=== PATIENT | female | born 1970 | race Caucasian/White ===

== ENCOUNTER 2022-08-18 20:17 | Observation (INO) | payer OTHER ==
[~2022-08-18] VITALS: Ht 167.6 cm; Wt 108.9 kg
--- NOTE | ~2022-08-18 | OR ---
[facility] [address] [place], [place] [address] Draft DATE OF OPERATION: 08/18/2022 SURGEON: Medhat Sun MD TIME: 11:30 p.m. PROBLEM: Food impaction (crab and crab shell proximal esophagus). POSTOPERATIVE DIAGNOSIS: Food impaction (crab and crab shell proximal esophagus). PROCEDURE: Upper endoscopy with disimpaction of food, obstruction of esophagus (crab shell and meat). ANESTHESIA: General endotracheal, Bao Siemens, REIN[employer]CING [employer] MESH INDICATIONS: This is a 52-year-old white woman, who approximately 8:00 p.m. this evening was eating her meal which she prepared with fresh crab that she cracked herself and had the sudden onset of pain in the proximal esophagus. She did not have hypersalivation, but she could tell that the impaction was persistent. She presents to the emergency room and was evaluated by Dr. Lopez. This included a CT scan of the chest and neck, which confirmed apparent foreign body of the esophagus at approximately the C6 level. She does not currently have hypersalivation, but persistent pain and sensation of persistent foreign body. She is admitted at this time to undergo upper endoscopy and removal of foreign body and other indicated procedures. She understands the risk of bleeding, infection, perforation, and so on and wished to proceed. FINDINGS: The foreign body was not visible on laryngoscopy and is performed by the education nurse. There was indeed impacted foreign body in the upper esophagus consistent with crab shell and crab meat. It was extracted with a three-prong grasper completely. Additional endoscopic evaluation of the esophagus and stomach showed some retained food in the stomach, but no other finding. There was no associated stricture or neoplasm with the obstructive site. PATIENT NAME: MICHI POLK OPERATIVE REPORT DATE OF : 66 REPORT #: [id number] PHYSICIAN: MEDHAT SUN MD PCP: NO PRIMARY CARE PHYSICIAN REPORT IS CONFIDENTIAL AND NOT TO BE RELEASED WITHOUT AUTHORIZATION [facility] [address], [place] [address] Draft DESCRIPTION OF PROCEDURE: The patient was brought to the endoscopy suite and given a general endotracheal anesthetic. In the supine position, Olympus video upper endoscope was passed in the hypopharynx. Good positioning of the endotracheal tube in relation to the vocal cords was noted. There was no sign of foreign body in the hypopharynx. An Olympus video upper endoscope was passed in the esophagus. Soon thereafter, there was noted to be an obstructing foreign body, most consistent with presumed crab meat and shell. An attempt at removal with a double-pronged toothed grasper was unsuccessful as the shell was too hard. On that basis, three prong grasper was obtained allowing for grasping of the foreign body and extraction. The scope was reintroduced after offloading the foreign body and the esophagus throughout its length appeared normal and the stomach normal as well. There was some retained food in the stomach. The scope was withdrawn and careful examination of the impacted site showed no sign of ulceration, neoplasm, Euceda's epithelium, or other problem. Biopsies were not obtained. The scope was removed and the patient was taken to the recovery room in good condition. CONCLUDING DIAGNOSIS: Complete clearance of impacted foreign body consisting of crab shell and crab. PLAN: She will be okay to discharge tonight once fully recovered from her anesthesia. No specific therapy for additional treatment is needed at this time. She will return to the ongoing care of her usual physician, . [place]. MD SIVAKUMAR Allen/MAYAL /[id number] Copies: ~ PATIENT NAME: MICHI POLK OPERATIVE REPORT DATE OF : 66 REPORT #: [id number] PHYSICIAN: MEDHAT SUN MD PCP: NO PRIMARY CARE PHYSICIAN REPORT IS CONFIDENTIAL AND NOT TO BE RELEASED WITHOUT AUTHORIZATION
--- NOTE | ~2022-08-18 | CONS ---
[facility] [address], [place] [address] Draft DATE OF CONSULTATION: 08/18/2022 TIME: 10:30 p.m. REQUESTING PHYSICIAN: Dr. Lopez. PROBLEM: Probable foreign body obstruction proximal esophagus. HISTORY: This 52-year-old obese white woman lives in [place], [place]. She had made a meal tonight using fresh cracked crab. At the midportion of her meals, she noted obstruction of her esophagus as manifested by pain and is quite certain that she has swallowed crab which remains stuck in her throat. She has not had hypersalivation, only pain and discomfort. Evaluation by Dr. Lopez includes a CT scan of the neck, which may show at C6, a possibly radiopaque foreign body suggestive of crab shell. She is admitted at this time to undergo upper endoscopy and retrieval of foreign body. PAST MEDICAL HISTORY: Notable for heartburn, but not significant. She does take medication for that. She denies any heart disease or other major medical problems. She has never had a food impaction or foreign body in the past. She has no trouble breathing. SOCIAL HISTORY: As noted, she lives in [place], [place]. She does work in [place]. Her primary physician is in [place]. PHYSICAL EXAMINATION: GENERAL: An obese white woman, who is somewhat tentative in verbalizing, though does verbalize reasonably well and without evidence of wheezing or hoarseness particularly. She points to her mid to lower neck as area of presumed obstruction. She is not having hypersalivation. NECK: Palpation of the neck shows no sign of crepitus. CHEST: Shows normal respiratory excursion. Pulse is regular. ABDOMEN: Obese, but soft. There is no tenderness. I reviewed the CT scan. It does show some possibility of radiopaque foreign body in the esophagus on lateral view. PATIENT NAME: MICHI POLK CONSULTATION DATE OF : 66 REPORT #: [id number] PHYSICIAN: MEDHAT SUN MD PCP: NO PRIMARY CARE PHYSICIAN REPORT IS CONFIDENTIAL AND NOT TO BE RELEASED WITHOUT AUTHORIZATION [facility] [address], [place] [address] Draft ASSESSMENT: The patient may have a proximal cervical esophageal foreign body obstruction with crab shell. She does not have hypersalivation, therefore complete obstruction is unlikely. It is just as likely that she may have acute traumatic injury to the mucosa of the esophagus with perception of her foreign body as actual foreign body. In any case examination, endoscopically would be appropriate. The risks of bleeding, infection, and perforation were reviewed with her in detail. She understands. We would anticipate an endotracheal tube for protection of the airway. She ate at approximately 6:30, it is now 10:30 and although likely the stomach has been cleared of the meal that she did ingest safety for her airway, particularly upon removal of foreign body would be best served by endotracheal intubation. She understands this. MD SIVAKUMAR Allen/DAVID /[id number] cc: Dr. John Kirby DO Copies: SCOTT GRANT DO ~ PATIENT NAME: POLKMICHI CONSULTATION DATE OF : 66 REPORT #: [id number] PHYSICIAN: MEDHAT SUN MD PCP: NO PRIMARY CARE PHYSICIAN REPORT IS CONFIDENTIAL AND NOT TO BE RELEASED WITHOUT AUTHORIZATION
[2022-08-18] MEDS ORDERED: OMEPRAZOLE20 MG PO (20:51)
[2022-08-18] MEDS ORDERED: HYDROCHLOROTH12.5 M1 PO (20:51)
[2022-08-18] MEDS ORDERED: LOSARTAN-HCTZ1 EACH PO (20:51)
[2022-08-18] MEDS ORDERED: AMBIEN5 MG PO (20:52)
--- OUTSIDE RECORDS SUMMARY | 2022-08-18 21:44 | XMS ---
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 E.D. VISIT COUNT (12 MO.) 1 [facility] 1 ISREAL Araujo TOTAL 2 NOTE: Visits indicate total known visits. ED/UCC VISIT TRACKING (12 MO.) 08/18/2022 20:20 ISREAL Christensen [place] TYPE: Emergency COMPLAINT: - SOMETHING STUCK IN THROAT 10/10/2021 11:21 [facility] JEANNINE OR TYPE: Emergency DIAGNOSES: - Paresthesia of skin - Anesthesia of skin - Chest pain, unspecified INPATIENT VISIT TRACKING (12 MO.) No inpatient visits to display in this time frame [email or web address]
--- NOTE | 2022-08-18 23:24 | NUR ---
08/18/222323 Darlyn Davis 2321: PT ARRIVES TO PACU FROM ENOSCOPY SUIT AWAKE WITH NATURAL AIRWAY. PT ABLE TO RESPOND APPROPRIATELY. DENIES PAIN OR NAUSEA.
== END 2022-08-18 23:30 | disposition home or self-care (01) ==
LOC: ED 20:17 → MS 20:21
PROVIDERS: ADMIT Surgery; ATTEND Surgery
PROC: 0DP Gastrointestinal System, Removal (ICD-10-PCS; principal; 2022-08-18 22:50)
DX: T18.128A Food in esophagus causing other injury, initial encounter (principal); T17.228A Food in pharynx causing other injury, initial encounter
CPT/HCPCS: 70490; J0330; J2704; J7121